=== PATIENT | male | born 1950 | race Caucasian/White ===

== ENCOUNTER → 2017-05-18 | Outpatient (CLI) | payer MEDICARE, BC | END | disposition home or self-care (01) | LOC: GMAB 09:40 | PROVIDERS: ATTEND Family Medicine | DX: Z12.5 Encounter for screening for malignant neoplasm of prostate (principal); Z79.899 Other long term (current) drug therapy; D72.819 Decreased white blood cell count, unspecified; D50.8 Other iron deficiency anemias | CPT/HCPCS: 82607; 82728; 82746; 83540; 83550; 84443; G0103 ==

== ENCOUNTER → 2018-05-04 | Outpatient (CLI) | payer MEDICARE, OTHER ==
--- NOTE | 2018-05-04 11:54 | MRI ---
EXAM DESCRIPTION: Lumbar Spine w/wo Contrast CLINICAL HISTORY: LUMBAR RADICULOPATHY COMPARISON: None Available. TECHNIQUE: MRI of the lumbar spine is performed according to our usual protocol with axial and sagittal multi sequence imaging. Postcontrast images were obtained after intravenous administration of gadolinium contrast. FINDINGS: Sagittal T2 images reveal decreased signal intensity consistent with desiccation of the intervertebral discs at all levels. Posterior annular bulges are present but mild at L3-4 through L5-S1 with lesser change at L1-2. Transitional vertebral body is here labeled S1. Slight anterolisthesis of L3 on L4 is noted measuring 2 mm. No prevertebral mass or aneurysm. Lower cord and conus appear normal. Tip of the conus is behind L1 to. Sagittal T1 images reveal benign marrow signal characteristics. Normal T1 signal intensity and appearance of the lower cord and conus. Defective posterior elements are seen posterior to L3-4 and L4-5 levels. Sagittal STIR images are negative for marrow edema within the vertebral bodies or posterior elements. No paraspinous fluid collection or cystic lesion. Small fluid-filled defect at the inferior facet of L4 is noted, evidently postoperative. Axial T1 and T2-weighted images were obtained to evaluate the disc levels. L1-L2: Minimal posterior annular bulge without focal herniation. No spinal stenosis or neural foraminal narrowing. Facets appear mildly hypertrophic. L2-L3: Mild diffuse posterior annular bulge without focal herniation. No spinal stenosis. There is mild bilateral neural foraminal narrowing. Facets appear moderately hypertrophied with spurring and ligamentum flavum thickening. L3-L4: Moderate diffuse posterior annular bulge is present. No significant spinal stenosis. There is marked bilateral facet hypertrophic spurring with severe narrowing of subarticular recesses affecting the descending L4 nerve roots. Moderate bilateral neural foraminal narrowing is present. L4-L5: Moderate diffuse posterior annular bulge is seen without significant spinal stenosis. There is severe facet and ligamentum flavum hypertrophy with defect in the inferior facet process of L4 consistent with postoperative change. There is increased fluid in the left facet joint. Sagittal images show moderately severe bilateral neural foraminal narrowing left worse than right. There is severe subarticular recess narrowing affecting the descending L5 nerve roots. Posterior laminectomy defect is present. L5-S1: Moderate diffuse posterior annular bulge is seen with linear high signal intensity in the posterior annulus suggesting a linear tear. No associated extruded disc fragment. There is severe narrowing of the subarticular recesses affecting the descending S1 nerve roots. Moderately severe facet degenerative changes are seen with marked ligamentum flavum thickening. No high-grade spinal stenosis. Sagittal images show mild bilateral neural foraminal narrowing. Upper sacrum appears intact. Degenerative changes are seen at the SI joints. No retroperitoneal mass or aneurysm. Postcontrast images show normal enhancement of lumbar vertebral venous plexus with normal posterior disc margins. Previous laminectomies are noted behind L3-4 and L4-5. IMPRESSION: Posterior annular bulges and facet degenerative changes cause multilevel subarticular recess compromise. No high-grade spinal stenosis or acute appearing disc herniation. Electronically signed by: Joey Lai MD 05/04/2018 11:53 AM CDT
== END ==
LOC: MRI 07:10
PROVIDERS: ATTEND Psychiatry & Neurology Neurology
DX: M54.16 Radiculopathy, lumbar region (principal)

== ENCOUNTER → 2018-05-23 | Outpatient (CLI) | payer MEDICARE, OTHER | LOC: GMAB 10:28 | PROVIDERS: ATTEND Family Medicine | DX: N40.0 Benign prostatic hyperplasia without lower urinary tract symptoms (principal); R53.83 Other fatigue ==

== ENCOUNTER → 2019-07-04 | Outpatient (CLI) | payer MEDICARE, OTHER | LOC: GMAE 12:06 | PROVIDERS: ATTEND Family Medicine | DX: Z12.5 Encounter for screening for malignant neoplasm of prostate (principal); Z13.6 Encounter for screening for cardiovascular disorders; Z79.899 Other long term (current) drug therapy | CPT/HCPCS: 84443; G0103 ==

== ENCOUNTER → 2019-09-21 | Outpatient (CLI) | payer MEDICARE, OTHER ==
--- NOTE | 2019-09-20 19:11 | MRI ---
EXAM DESCRIPTION: Cervical Spine: MRI. CLINICAL HISTORY: 69 years Male CERVICAL ROOT DISORDERS COMPARISON: Cervical radiographs 18 September 2019. TECHNIQUE: Multiplanar, high-field MRI, multiple sequences, non-contrast Cervical spine. FINDINGS: C2-C3: Disc desiccation with disc space preserved. Right uncinate spur. Bilateral hypertrophic facet arthrosis. Bilateral mild to moderate neural foraminal narrowing. Minimal thickening of the posterior ligament with minimal canal narrowing. C3-C4: Disc desiccation and minimal disc space loss. Minimal posterior bulge. Posterior ligament thickening. Bilateral small uncinate spurs. Hypertrophic arthrosis on the left with left neural foraminal stenosis. Moderate right neural foraminal narrowing. Central canal nearly stenotic. C4-C5: Disc desiccation and moderate to severe disc space loss. Anterior disc bulge and endplate reaction. Tiny posterior disc bulge with endplate ridging. Bilateral small uncinate spurs larger on the right. Right side hypertrophic facet arthrosis and borderline neural foraminal stenosis. Moderate right neural foraminal narrowing with facet unremarkable. Posterior ligament thickening and moderate canal narrowing. C5-C6: Disc desiccation and severe disc space loss. Bilateral small uncinate spurs. Posterior bilateral ligament thickening. Moderate canal narrowing. Facet joints are negative. Right neural foraminal stenosis and left moderate to severe neural foraminal narrowing. C6-C7: Disc desiccation and moderate to severe disc space loss with anterior endplate changes. Bulging posterior remnant not abutting the cord. Bilateral uncinate spurs and right side facet hypertrophic arthrosis. Bilateral moderate to severe neural foraminal narrowing. Moderate canal narrowing. C7-T1 disc with normal signal and disc space preserved. Trace anterolisthesis. Mild canal narrowing and right neural foraminal narrowing. Left neuroforamen patent. Minimal hypertrophic arthrosis in the right facet. Normal signal in the T1-T2 disc with no bulging. Disc space preserved. Canal and neural foramina are patent. Facet joints negative. Spinal alignment minimal kyphosis C4-C6.. No cord compression or cord edema. Atlantoaxial joint minimal arthrosis. Base of the cerebellar tonsils is above the foramen magnum. Paravertebral soft tissues negative.. Vertebral bodies are not compressed at any level. Normal marrow signal in the remaining vertebral bodies and the posterior elements. IMPRESSION: 1. C3-C4 left neural foraminal stenosis. Central canal nearly stenotic with thickening of the posterior ligaments and posterior disc bulge. Correlate for left C4 radiculopathy. 2. Borderline right neural foraminal stenosis at C4-C5. Posterior disc bulge. Correlate for right C5 radiculopathy. 3. Facet arthrosis and bony spurs at C5-C6 causing right neural foraminal stenosis. Correlate for right C6 radiculopathy. 4. Bilateral moderate to severe neural foraminal narrowing at C6-C7 caused by bony spurs. Electronically signed by: Dread La MD 09/20/2019 7:10 PM CDT
--- NOTE | 2019-09-24 08:01 | MRI ---
EXAM DESCRIPTION: MRI left shoulder CLINICAL HISTORY: Left shoulder pain COMPARISON: None. TECHNIQUE: Multiplanar, multisequence MR images of the left shoulder FINDINGS: Severe glenohumeral osteoarthritis. Complete loss of glenoid articular cartilage with Central scalloping, type AII. Marrow edema throughout the lower glenoid. Circumferential degenerative labral tear with large joint effusion. Large intra-articular body in the subcoracoid recess measures up to 2.3 cm in size Long head biceps tendon thickening and increased signal intra-articular consistent with severe impingement tendinopathy. Degenerative labral anchor without acute detachment Severe supraspinatus and infraspinatus tendinosis with tendon thickening and intratendinous increased signal. Low-grade interstitial partial tear of the mid posterior supraspinatus tendon from the critical zone and insertion. Small resorptive cyst and osseous edema in the horizontal facet greater tuberosity. Several resorptive cyst in the posterior oblique facet tuberosity. Supraspinatus and infraspinatus muscle volume mildly decreased with grade 1 fatty infiltration Teres minor tendon intact. Moderate muscle volume loss and grade 2 fatty infiltration. Subscapularis tendinosis with low-grade interstitial fissuring.. Mild muscle volume loss and grade 1 fatty infiltration Moderate acromioclavicular osteoarthritis with osteophytes indenting the supraspinatus. Mild anterior and lateral downsloping of the acromion with inferior acromial spur IMPRESSION: Severe glenohumeral osteoarthritis with central scalloping, type AII glenoid. Joint effusion and intra-articular body in the subcoracoid recess Severe rotator cuff tendinopathy. Impingement tendinopathy of the biceps Electronically signed by: Devon Aguilar MD 09/24/2019 8:00 AM CDT
== END ==
LOC: MRI 13:00
PROVIDERS: ATTEND Family Medicine
DX: M19.012 Primary osteoarthritis, left shoulder (principal); M75.42 Impingement syndrome of left shoulder; M48.02 Spinal stenosis, cervical region; M25.78 Osteophyte, vertebrae; G54.2 Cervical root disorders, not elsewhere classified

== ENCOUNTER → 2020-04-07 | Outpatient (CLI) | payer MEDICARE, OTHER | LOC: ECHO 13:07 | PROVIDERS: ATTEND Family Medicine | DX: R07.2 Precordial pain (principal); I34.8 Other nonrheumatic mitral valve disorders ==

== ENCOUNTER → 2020-04-08 | Outpatient (CLI) | payer MEDICARE, OTHER ==
--- NOTE | 2020-04-08 12:11 | US ---
EXAM DESCRIPTION: Carotid Duplex: ULTRASOUND. CLINICAL HISTORY: 70 years Male SYNCOPE AND COLLAPSE COMPARISON: None. TECHNIQUE: Transcutaneous scanning utilizing kay-scale and Doppler modes to evaluate the bilateral carotid systems and vertebral arteries. Percentage of diameter of stenosis or no stenosis recorded will be based upon NASCET criteria. FINDINGS: Peak systolic/end diastolic (CM-Sec) CCA Right 77/17 Left 114/23. ICA Right proximal 38/11, distal 54/20. Left proximal 59/10, Distal 47/20. Vertebral Right 31/7 Left 33/11. ECA (PS Only) Right 68 left 68. ICA/CCA peak systolic ratio: Right 0.7 Left 0.5 ICA/CCA end diastolic ratio: Right 1.2 Left 0.4 Vertebral arteries: antegrade flow. Comments: Atherosclerosis in the bilateral bifurcations and proximal ICA vessels. Area stenosis and diameter stenosis less than 15 % in the right CCA bifurcation and proximal right ICA. Area stenosis and diameter stenosis less than 30% in the left CCA bifurcation. IMPRESSION: 1. Doppler evaluation of the bilateral carotid systems and vertebral arteries shows no hemodynamically significant stenoses. 2. No significant amount of plaque in the carotid arteries bilaterally. Bilateral vertebral arteries showed antegrade-cephalad flow. Electronically signed by: Dread La MD 04/08/2020 12:09 PM CDT
== END ==
LOC: US 10:00
PROVIDERS: ATTEND Family Medicine
DX: R55 Syncope and collapse (principal)

== ENCOUNTER → 2020-07-28 | Outpatient (CLI) | payer MEDICARE, OTHER | LOC: GMAE 10:43 | PROVIDERS: ATTEND Family Medicine | DX: Z12.5 Encounter for screening for malignant neoplasm of prostate (principal); Z79.899 Other long term (current) drug therapy | CPT/HCPCS: 84443; G0103 ==